=== PATIENT | female | born 1990 | race Caucasian/White ===

== ENCOUNTER → 2017-10-19 | Outpatient (CLI) | payer SELFPAY ==
[2017-10-19 15:36] LABS: CHLAMYDIA DNA AMPLIFICATION NEGATIVE (NEGATIVE); GC DNA AMPLIFICATION NEGATIVE (NEGATIVE)
[2017-10-19 17:29] LABS: BASO % 0.4 % (0.0-1.0); EOS # 0.2 10^3/uL (0.0-0.50); EOS % 2.3 % (0.0-3.0); HEMATOCRIT 35.1 % (36.0-47.0); HEMOGLOBIN 11.9 g/dl (12.0-15.5); LYMPH # 1.9 10^3/uL (1.5-6.5); LYMPH % 18.8 % (24.0-44.0); MEAN CORPUSCULAR HEMOGLOBIN 30.6 pg (27.0-33.0); MEAN CORPUSCULAR HGB CONC 33.9 g/dl (32.0-36.5); MEAN CORPUSCULAR VOLUME 90.2 fl (80.0-96.0); MONO # 0.9 10^3/uL (0.0-0.8); MONO % 8.7 % (0.0-5.0); NEUTROPHILS # 7.1 10^3/uL (1.8-7.7); NEUTROPHILS % 68.8 % (36.0-66.0); PLATELET COUNT, AUTOMATED 225 10^3/uL (150-450); RED BLOOD COUNT 3.89 10^6/uL (4.00-5.40); RED CELL DISTRIBUTION WIDTH 13.2 % (11.5-14.5); WHITE BLOOD COUNT 10.3 10^3/uL (4.0-10.0)
[2017-10-21 09:37] LABS: RUBELLA IgG QUALITATIVE SUSCEPTIBLE (IMMUNE)
[2017-10-21 09:51] LABS: HBsAg Prenatal NEGATIVE (NEGATIVE)
[2017-10-21 10:07] LABS: HEPATITIS C VIRUS ABY INDEX 0.1 INDEX (<0.8)
[2017-10-21 10:08] LABS: HIV 1&2 SCREEN CENTAUR NEGATIVE (NEGATIVE)
== END ==
LOC: M SMT 11:47
DX: Z34.83 Encounter for supervision of other normal pregnancy, third trimester (principal); Z3A.32 32 weeks gestation of pregnancy
CPT/HCPCS: 86762

== ENCOUNTER 2017-11-23 02:16 | Inpatient (IN) | payer SELFPAY ==
[2017-11-23 02:48] LABS: HEMATOCRIT 40.1 % (36.0-47.0); HEMOGLOBIN 13.7 g/dl (12.0-15.5); MEAN CORPUSCULAR HEMOGLOBIN 30.4 pg (27.0-33.0); MEAN CORPUSCULAR HGB CONC 34.2 g/dl (32.0-36.5); MEAN CORPUSCULAR VOLUME 88.9 fl (80.0-96.0); PLATELET COUNT, AUTOMATED 195 10^3/uL (150-450); RED BLOOD COUNT 4.51 10^6/uL (4.00-5.40); RED CELL DISTRIBUTION WIDTH 13.1 % (11.5-14.5)
[2017-11-23] MEDS ORDERED: METHYLERGONOVINE MALEATE 0.2 MG TAB PO (03:30)
[2017-11-23] MEDS ORDERED: ANUSOL HC CREAM 30GM TOP (03:30)
[2017-11-23] MEDS ORDERED: ACETAMINOPHEN 500 MG TAB PO (03:30)
[2017-11-23] MEDS ORDERED: DIBUCAINE 1% OINTMENT 30GM TOP (03:30)
[2017-11-23] MEDS ORDERED: MEASLES,MUMPS,RUBELLA VACCINE INJ (MMR-II) (90707) SC (03:30)
[2017-11-23] MEDS ORDERED: MOM 30ML SUSPENSION UDC PO (03:30)
[2017-11-23] MEDS ORDERED: RHOGAM 300 MCG (1500 IU) INJ (J2790) IM (03:30)
[2017-11-23] MEDS ORDERED: DOCUSATE SODIUM 100 MG CAP PO (03:30)
[2017-11-23] MEDS: OXYTOCIN INJ 10 UNITS/ML VIAL (J2590) IM (03:30)
[2017-11-23] MEDS: IBUPROFEN 800 MG TAB PO (05:06)
[2017-11-23] MEDS: PRENATAL VITAMINS CHEWABLE TABLET PO (09:27)
[2017-11-23] MEDS: METHYLERGONOVINE MALEATE 0.2 MG TAB PO ×3 (09:27→21:34)
[2017-11-24] MEDS ORDERED: METHYLERGONOVINE MALEATE 0.2 MG TAB PO (04:00)
[2017-11-24] MEDS: PRENATAL VITAMINS CHEWABLE TABLET PO (07:41)
== END 2017-11-24 11:55 | disposition home or self-care (01) | DRG 560 ==
LOC: M LDI 02:16 → M OBS 05:20
PROVIDERS: Advanced Practice Midwife
PROC: 10E0XZZ Delivery of Products of Conception, External Approach (ICD-10-PCS; principal; 2017-11-23)
DX: O77.0 Labor and delivery complicated by meconium in amniotic fluid (principal); O32.6XX0 Maternal care for compound presentation, not applicable or unspecified; Z37.0 Single live birth; Z3A.39 39 weeks gestation of pregnancy; O69.82X0 Labor and delivery complicated by other cord entanglement, without compression, not applicable or unspecified; O09.31 Supervision of pregnancy with insufficient antenatal care, first trimester; O09.32 Supervision of pregnancy with insufficient antenatal care, second trimester